=== PATIENT | female | born 1950 | race Caucasian/White ===

== ENCOUNTER 2018-02-11 15:09 | Emergency (ER) | payer MEDICARE, OTHER ==
[~2018-02-11] VITALS: Ht 152.4 cm; Wt 81.2 kg
[2018-02-11 15:20] LABS: ICTOTEST (BILI CONFIRMATORY) Negative (Negative); URINE BILIRUBIN 1+ (Negative); URINE BLOOD TRACE (Negative); URINE CLARITY CLEAR; URINE COLOR YELLOW; URINE GLUCOSE-RANDOM NEGATIVE (Negative); URINE KETONES TRACE (Negative); URINE LEUKOCYTES-REFLEX TRACE (Negative); URINE NITRITE-REFLEX NEGATIVE (Negative); URINE PROTEIN TRACE (Negative); URINE SPECIFIC GRAVITY >= 1.030 (1.005-1.030)
[2018-02-11] MEDS ORDERED: ASPIR 8181 MG PO (15:22)
[2018-02-11] MEDS ORDERED: METFORMIN HCL500 MG PO (15:24)
[2018-02-11] MEDS ORDERED: LEXAPRO 10 MG T10 M1 PO (15:24)
[2018-02-11] MEDS ORDERED: SYNTHROID100 MC1 PO (15:24)
[2018-02-11] MEDS ORDERED: SUPER B COMPLE150 MG PO (15:25)
[2018-02-11] MEDS ORDERED: LIPITOR10 MG PO (15:25)
[2018-02-11] MEDS ORDERED: HYDROCHLOROTHIA25 M2 PO (15:25)
[2018-02-11] MEDS ORDERED: PRINIVIL20 MG PO (15:25)
[2018-02-11] MEDS ORDERED: VITAMIN D2000 UNIT PO (15:26)
[2018-02-11 15:50] LABS: ABSOLUTE EOSINOPHILS 0.1 thou/uL (0.0-0.7); ABSOLUTE LYMPHOCYTES 1.7 thou/uL (0.8-5.3); ABSOLUTE MONOCYTES 0.8 thou/uL (0.0-1.2); ABSOLUTE NEUTROPHILS 4.3 thou/uL (1.6-8.1); BASOPHILS 0.6 %; EOSINOPHILS 1.6 %; LYMPHOCYTES 24.5 %; MCH 31.1 pg (26.0-34.0); MCV 91.4 fL (80.0-100.0); MONOCYTES 11.7 %; MPV 7.2 fl. (7.2-11.1); NUCLEATED RBCS 0 /100WBC; PLATELET COUNT* 412 thou/uL (150-400); POLYS 61.6 %; RBC 4.82 mil/uL (4.20-5.00); RDW-CV 12.4 % (10.5-14.5)
[2018-02-11 15:53] LABS: ANION GAP 8 mmol/L (7-16); BUN 14 mg/dL (7-18); CALCIUM 8.7 mg/dL (8.5-10.1); CHLORIDE 97 mmol/L (98-107); CO2 28 mmol/L (21-32); GLUCOSE 114 mg/dL (70-99); POTASSIUM 3.2 mmol/L (3.5-5.1); SODIUM 133 mmol/L (136-145)
[2018-02-11 16:00] LABS: CRYSTALS None Seen /LPF (None Seen); HYALINE CASTS 4-10 Moderate /LPF (None Seen); SQUAMOUS 4-10 Moderate /LPF (0-3); URINE RBC 3-10 Few /HPF (0-2); URINE WBC-REFLEX 6-15 Few /HPF (0-5)
[2018-02-11 16:00] LABS: ALBUMIN 3.7 g/dL (3.4-5.0); ALKALINE PHOSPHATASE 68 U/L (46-116); LIPASE 165 U/L (73-393); SGOT 21 U/L (15-37); SGPT 23 U/L (30-65); TOTAL BILIRUBIN 0.4 mg/dL (<0.1-1.0); TOTAL PROTEIN 7.6 g/dL (6.4-8.2); TROPONIN-I LEVEL <0.06 ng/mL (<0.06)
--- NOTE | 2018-02-11 16:49 | EKG ---
[place] [address] ELECTROCARDIOGRAM REPORT Name: HELIO HAQUE Room: [facility]#: [id number] Admission: 02/11/18 Attend Phys: Discharge: Date of : 46 Report #: [id number] THIS REPORT FOR: //name// [facility] ED Test Date: 2018-02-11 Test Time: 16:01:10 Pat Name: HELIO HAQUE Department: Room: Gender: F [employer] Maintenance Technician: Beka : 1950 Requested By: Jonnie Mayer Order Number: [id number] MD: Shamar Rider Measurements Intervals [place] Rate: 74 P: 45 NH: 120 QRS: 57 QRSD: 89 T: 12 QT: 407 QTc: 452 Interpretive Statements Sinus rhythm No previous ECG available for comparison Electronically Signed On 02-11-2018 16:48:45 CDT by Shamar Rider [email or web address] <ELECTRONICALLY SIGNED> By: Shamar Rider MD, [facility] 02/11/18 1648 1601 1601 Shamar Rider MD, FACC /EPI
[2018-02-11] MEDS ORDERED: ZOFRAN ODT4 MG SUBLING ×2 (17:17→17:26)
[2018-02-11] MEDS ORDERED: CIPROFLOXACIN500 M1 PO (17:17)
[2018-02-11] MEDS ORDERED: BACTRIM DS TAB1 EACH PO (17:26)
[2018-02-11 17:34] VITALS: BP 121/70
== END 2018-02-11 17:34 | disposition home or self-care (01) ==
LOC: M.ERS 15:09
PROVIDERS: Family Medicine; Nurse Practitioner Family
DX: N39.0 Urinary tract infection, site not specified (principal); R11.2 Nausea with vomiting, unspecified; I10 Essential (primary) hypertension; E78.5 Hyperlipidemia, unspecified; F41.9 Anxiety disorder, unspecified; K21.9 Gastro-esophageal reflux disease without esophagitis; E89.0 Postprocedural hypothyroidism; Z90.49 Acquired absence of other specified parts of digestive tract; Z90.711 Acquired absence of uterus with remaining cervical stump; Z85.850 Personal history of malignant neoplasm of thyroid; Z88.1 Allergy status to other antibiotic agents